=== PATIENT | male | born 2005 | race Caucasian/White ===

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

== ENCOUNTER → 2024-09-24 15:23 | Outpatient (BNVA) | payer MEDICAID, SELFPAY | PROVIDERS: PCP Nurse Practitioner Family; Visit Provider Nurse Practitioner Family | DX: R10.32 Left lower quadrant pain (principal) | CPT/HCPCS: 80053; 85025 ==

== ENCOUNTER 2024-10-04 09:18 | Outpatient (CLI) | payer MEDICAID, SELFPAY ==
[2024-10-04] MEDS: iohexol 350 mg/mL 500 mL Btl (per mL) PO (09:53)
--- NOTE | 2024-10-04 10:15 | CT_ITS ---
WS: [id number] CT ABDOMEN AND PELVIS WITH CONTRAST HISTORY: R10.32 - Left lower quadrant pain TECHNIQUE: Imaging performed of the abdomen and pelvis with IV contrast. Single phase imaging of the abdomen. Coronal and sagittal reformats are submitted. All CT scans at [facility] use at least one of these dose optimization techniques: automated exposure control; mA and/or kV adjustment per patient size (includes targeted exams where dose is matched to clinical indication); or iterative reconstruction. IV CONTRAST: Omnipaque 350; 100 mL IV. Oral contrast: Yes. DLP: 313.28 mGy.cm COMPARISON: 11/17/2012 Lower thorax: Lung bases are clear. Heart is normal size. No hiatal hernia. Liver/biliary system: Normal size with no intrahepatic dilatation. Gallbladder: Normal. No gallstones or wall thickening. No pericholecystic fluid. Pancreas: Normal size pancreas and pancreatic duct. No adjacent inflammation. Spleen: Normal size spleen. No mass or infarct. Adrenal glands: Normal. Right kidney: Normal. Left kidney: Normal. Aorta: Normal. Lymphadenopathy: None. Free fluid: None. GI tract: Prior appendectomy. No GI tract obstruction. Mild luminal narrowing involving the sigmoid colon may be a functional narrowing due to peristalsis. There is no adjacent surrounding inflammation. Focal area of increased density in enhancement in the RIGHT perineum measures 1.5 x 0.9 cm. Abdominal wall: Unremarkable abdominal wall. No hernia. Pelvis: Small amount of free fluid in the pelvis. Bones: Unremarkable. CT/CT abdomen pelvis w con* [id number] IMPRESSION: 1. Prior appendectomy. 2. Short segment area of luminal narrowing involving the sigmoid colon. This m ay be secondary to peristalsis or chronic inflammatory stricture. No acute infl ammation. 3. Small amount of free fluid in the pelvis is abnormal in a male patient. Marielle ology of fluid has not been determined but could be related to the sigmoid stri cture. Correlate for inflammatory bowel disease such as ulcerative colitis. 4. Hyperdense soft tissue nodule in the RIGHT perineum measures 1.5 x 0.9 cm. This may be a small abscess or complex cyst. Correlate for possible anal fissur e.
[2024-10-04] MEDS: iohexol 350 mg/mL 500 mL Btl (per mL) IV (10:19)
== END 2024-10-04 09:19 | disposition home or self-care (01) ==
PROVIDERS: PCP Nurse Practitioner Family; Visit Provider Nurse Practitioner Family
DX: R10.32 Left lower quadrant pain (principal); Z90.49 Acquired absence of other specified parts of digestive tract; K59.89 Other specified functional intestinal disorders; R18.8 Other ascites
CPT/HCPCS: 74177

== ENCOUNTER → 2024-10-17 14:49 | Outpatient (BNVA) | payer MEDICAID, SELFPAY | PROVIDERS: PCP Nurse Practitioner Family; Visit Provider Student in an Organized Health Care Education/Training Program | DX: K52.9 Noninfective gastroenteritis and colitis, unspecified (principal) | CPT/HCPCS: 99204 ==